=== PATIENT | female | born 1965 | race Caucasian/White ===

== ENCOUNTER 2023-07-17 10:12 | Emergency (ER) | payer OTHER ==
[~2023-07-17] VITALS: Ht 170.2 cm; Wt 83.5 kg
[2023-07-17 11:29] VITALS: BP 148/80; RESP 18; TEMP 97.4; O2SAT 96
[2023-07-17 11:34] VITALS: PULSE 67
[2023-07-17] MEDS: HYDROcodone-ACET 5/325MG TAB PO ONE (11:51)
[2023-07-17] MEDS ORDERED: PRED20TA2 PO (12:56)
[2023-07-17] MEDS ORDERED: HYDR-4902 PO (12:56)
== END 2023-07-17 13:02 | disposition home or self-care (01) ==
LOC: ER 10:12
DX: M24.812 Other specific joint derangements of left shoulder, not elsewhere classified (principal); M77.9 Enthesopathy, unspecified; R94.31 Abnormal electrocardiogram [ECG] [EKG]
CPT/HCPCS: 73030; 93005